=== PATIENT | female | born 1985 | race Caucasian/White ===

== ENCOUNTER → 2017-12-02 09:57 | Outpatient (CLI) | payer OTHER, SELFPAY ==
--- NOTE | 2017-12-02 09:59 | US_ITS ---
US transvaginal HISTORY: ITS.REASON: US T/V- Pelvic Pain ORDERING PHYSICIAN: Brandon Ponce MD PATIENT AGE: 32 years Comparison: None FINDINGS: The uterus is 99 4 x 5.5 cm with a combined endometrial thickness is 5 mm. No endometrial or uterine abnormalities are evident. The right ovary is 2.3 x 2 cm and the left ovary is 3.4 x 2.4 cm. Bilateral blood flow is present. There are small bilateral ovarian follicles measuring up to 12 mm on the right. There is a small amount cul-de-sac fluid. IMPRESSION: Small bilateral ovarian follicles with a small amount fluid in the cul-de-sac
== END ==
PROVIDERS: PCP Family Medicine; Visit Provider Nurse Practitioner Obstetrics & Gynecology
DX: R10.2 Pelvic and perineal pain (principal)
CPT/HCPCS: 76830